=== PATIENT | male | born 1960 | race Caucasian/White ===

== ENCOUNTER → 2018-01-12 | Outpatient (CLI) | payer BC ==
[2018-01-12 09:41] LABS: MCHC 32.7 g/dL (31.0-37.0); MCV 85.6 fL (80.0-100.0); Mean Platelet Volume 7.4; Platelet Count 237 k/uL (150-450); RBC 5.73 m/uL (4.30-5.90); RDW 13.1 % (11.5-15.5); WBC 6.1 k/uL (3.8-10.6)
[2018-01-12 09:57] LABS: ALT 41 U/L (21-72); AST 29 U/L (17-59); Albumin 4.7 g/dL (3.5-5.0); Alkaline Phosphatase 65 U/L (38-126); Anion Gap 14 mmol/L; Blood Urea Nitrogen 21 mg/dL (9-20); Calcium 9.7 mg/dL (8.4-10.2); Carbon Dioxide 26 mmol/L (22-30); Chloride 105 mmol/L (98-107); Glucose 91 mg/dL (74-99); Potassium 4.9 mmol/L (3.5-5.1); Sodium 145 mmol/L (137-145); Total Protein 7.2 g/dL (6.3-8.2)
[2018-01-12 10:12] LABS: T4, Free (Free Thyroxine) 1.23 ng/dL (0.78-2.19)
[2018-01-12 18:39] LABS: Hemoglobin A1C 5.4 % (4.0-6.0)
== END | disposition home or self-care (01) ==
LOC: LABWHC1 09:06
PROVIDERS: ATTEND Internal Medicine Cardiovascular Disease
DX: Z09 Encounter for follow-up examination after completed treatment for conditions other than malignant neoplasm (principal); Z95.1 Presence of aortocoronary bypass graft
CPT/HCPCS: 36415; 80053; 83036; 83880; 84439; 84443; 85027

== ENCOUNTER → 2018-02-10 | Outpatient (CLI) | payer BC ==
--- NOTE | 2018-02-10 20:02 | CT ---
EXAMINATION TYPE: CT chest wo con DATE OF EXAM: 02/10/2018 COMPARISON: NONE HISTORY: Pneumonia unspecified. Cough x [address] DLP: 385 mGycm. Automated Exposure Control for Dose Reduction was Utilized. TECHNIQUE: CT scan of the thorax is performed without IV contrast. FINDINGS: There is a mild thoracic dextroscoliosis. There is no evidence of pleural effusion. Lungs are clear o f consolidation. There is no evidence of a pulmonary mass. There are sternal wires. There is apparent surgery at the aortic valve. There is left axillary pacemaker with the lead tip in the right ventric le. The ascending aorta measures 3.2 cm. There are small linear areas in the posterior lung michael. T his is consistent with subsegmental atelectasis. There is no pericardial effusion. There are paratracheal and anterior mediastinal lymph nodes that measure up to 2 x 1 cm. There are no hilar masses. IMPRESSION: Previous surgery. Minimal subsegmental atelectasis. Nonspecific mediastinal lymph nodes. No evidence of bronchopneumonia.
== END ==
LOC: RADCTMAIN 19:07
PROVIDERS: ATTEND Family Medicine
DX: J18.9 Pneumonia, unspecified organism (principal)
CPT/HCPCS: 71250

== ENCOUNTER → 2018-03-16 | Outpatient (CLI) | payer BC ==
[2018-03-16 09:21] LABS: Calcium 9.1 mg/dL (8.4-10.2); Potassium 4.5 mmol/L (3.5-5.1)
== END | disposition home or self-care (01) ==
LOC: LABWHC1 08:11
PROVIDERS: ATTEND Internal Medicine Cardiovascular Disease
DX: I50.9 Heart failure, unspecified (principal)
CPT/HCPCS: 36415; 80048; 83880

== ENCOUNTER → 2018-09-12 | Outpatient (CLI) | payer BC ==
--- NOTE | 2018-09-16 13:03 | MM ---
Reason for exam: clinical finding. Baseline mammogram. History: Family history of breast cancer in grandmother. Indicated problem(s): lump or thickening and pain in the right breast. Physical Findings: Nurse did not find any significant physical abnormalities on exam. MG Diagnostic Mammo w CAD GLORIA Bilateral CC and MLO view(s) were taken. Very minimal bilateral gynecomastia. Left pacemaker noted. These results were verbally communicated with the patient and result sheet given to the patient on 09/12/18. ASSESSMENT: Benign, BI-RAD 2 RECOMMENDATION: Clinical management.
--- NOTE | 2018-09-16 13:09 | USB ---
Reason for exam: clinical finding. History: Family history of breast cancer in Great grandmother. Indicated problem(s): lump or thickening and pain in the right breast. Physical Findings: Nurse Summary: Asymmetric thickening and tenderness with lump in the right breast . US Breast RT Right complete breast ultrasound includes all four quadrants, the retroareolar region and axilla. Finding demonstrates no cystic or solid lesion seen. Very minimal right gynecomastia on ultrasound. Mammogram is recommended to confirm. ASSESSMENT: Incomplete: need additional imaging evaluation, BI-RAD 0 RECOMMENDATION: Follow-up diagnostic mammogram of both breasts.
== END | disposition home or self-care (01) ==
LOC: RADUSWWP 14:04
PROVIDERS: ATTEND Family Medicine
DX: N63.10 Unspecified lump in the right breast, unspecified quadrant (principal); R22.2 Localized swelling, mass and lump, trunk
CPT/HCPCS: 77066

== ENCOUNTER → 2019-07-31 | Outpatient (CLI) | payer BC ==
[2019-07-31 09:11] LABS: HGB 15.5 gm/dL (13.0-17.5); MCH 30.3 pg (25.0-35.0); MCHC 34.5 g/dL (31.0-37.0); MCV 87.7 fL (80.0-100.0); Mean Platelet Volume 6.3; Platelet Count 234 k/uL (150-450); RBC 5.13 m/uL (4.30-5.90); RDW 12.5 % (11.5-15.5); WBC 8.4 k/uL (3.8-10.6)
[2019-07-31 18:36] LABS: African American GFR (CKD) 70.2 (60.0-200.0); Albumin 4.6 g/dL (3.80-4.90); Albumin/Globulin Ratio 2.42 (1.60-3.17); Anion Gap 6.3 mmol/L (4.00-12.00); BUN/Creat Ratio 14.62 Ratio (12.00-20.00); Calcium 9.4 mg/dL (8.7-10.3); Carbon Dioxide 27.7 mmol/L (21.6-31.8); Globulin 1.9 g/dL (1.6-3.3); Non-African American GFR(CKD) 60.6 (60.0-200.0); Potassium 4.5 mmol/L (3.5-5.5); Total Bilirubin 0.8 mg/dL (0.3-1.2); Total Protein 6.5 g/dL (6.2-8.2)
[2019-08-04 19:25] LABS: Large VLDL Particle Number,NMR 10.2 nmol/L (<=2.7)
== END | disposition home or self-care (01) ==
LOC: LABWHC1 08:27
PROVIDERS: ATTEND Internal Medicine Cardiovascular Disease
DX: I25.10 Atherosclerotic heart disease of native coronary artery without angina pectoris (principal)
CPT/HCPCS: 36415; 80053; 83704; 85027

== ENCOUNTER → 2019-08-16 | Outpatient (CLI) | payer BC ==
[2019-08-16 16:33] LABS: Chol/HDL Ratio 3.54; LDL Cholesterol,Calculated 78.4 mg/dL (0.0-131.0); VLDL Calculation 25.6 mg/dL (5.00-40.00)
[2019-08-16 19:12] LABS: Hemoglobin A1C 5.4 % (4.0-6.0)
== END | disposition home or self-care (01) ==
LOC: LABWHC1 09:53
PROVIDERS: ATTEND Family Medicine
DX: Z00.00 Encounter for general adult medical examination without abnormal findings (principal); I50.9 Heart failure, unspecified; Z11.59 Encounter for screening for other viral diseases; Z12.5 Encounter for screening for malignant neoplasm of prostate
CPT/HCPCS: 36415; 80061; 83036; 83880; 84153; 84443; 86803

== ENCOUNTER → 2021-05-22 | Outpatient (CLI) | payer BC ==
[2021-05-22 22:45] LABS: Chol/HDL Ratio 3.63; LDL Cholesterol,Calculated 87.6 mg/dL (0.0-131.0); VLDL Calculation 20.4 mg/dL (5.00-40.00)
== END | disposition home or self-care (01) ==
LOC: LABWHC1 09:43
PROVIDERS: ATTEND Internal Medicine
DX: E78.2 Mixed hyperlipidemia (principal)
CPT/HCPCS: 36415; 80061; 84450; 84460

== ENCOUNTER → 2021-09-08 | Outpatient (CLI) | payer BC ==
[2021-09-08 14:17] LABS: Basophils # (A) 0.05 X 10*3/uL (0.00-0.10); Eosinophils # (A) 0.13 X 10*3/uL (0.04-0.35); Eosinophils % (A) 2.5 %; HCT 46.3 % (39.6-50.0); HGB 15.3 g/dL (13.0-17.0); Lymphocytes # (A) 1.37 X 10*3/uL (0.90-5.00); Lymphocytes % (A) 26.9 %; MCV 87.9 fL (80.0-97.0); Mean Platelet Volume 9.8 fL (9.5-12.2); Monocytes # (A) 0.41 X 10*3/uL (0.20-1.00); Neutrophils # (A) 3.13 X 10*3/uL (1.80-7.70); Neutrophils % (A) 61.4 %; Platelet Count 255 X 10*3/uL (140-440); RBC 5.27 X 10*6/uL (4.40-5.60); RDW 12.5 % (11.5-14.5)
[2021-09-08 15:39] LABS: ALT 22 U/L (10-49); AST 20 U/L (14-35); African American GFR (CKD) 78.6 (60.0-200.0); Albumin 4.9 g/dL (3.8-4.9); Alkaline Phosphatase 67 U/L (41-126); BUN/Creat Ratio 15.81 Ratio (12.00-20.00); Blood Urea Nitrogen 18.5 mg/dL (9.0-27.0); Calcium 9.6 mg/dL (8.7-10.3); Chloride 101 mmol/L (96-109); Chol/HDL Ratio 3.53 Ratio; Creatine Kinase 49 U/L (35-257); Globulin 2.4 g/dL (1.6-3.3); Glucose 95 mg/dL (70-110); LDL Cholesterol,Calculated 89.6 mg/dL (0.0-131.0); Non-African American GFR(CKD) 67.8 (60.0-200.0); Potassium 4.4 mmol/L (3.5-5.5); Sodium 140 mmol/L (135-145); Total Protein 7.3 g/dL (6.2-8.2)
== END | disposition home or self-care (01) ==
LOC: LABWHC1 09:08
PROVIDERS: ATTEND Family Medicine
DX: Z00.00 Encounter for general adult medical examination without abnormal findings (principal); I50.9 Heart failure, unspecified; Z12.5 Encounter for screening for malignant neoplasm of prostate; E78.5 Hyperlipidemia, unspecified
CPT/HCPCS: 36415; 80053; 80061; 82550; 83036; 83880; 84153; 84443; 85025

== ENCOUNTER → 2023-05-29 | Outpatient (CLI) | payer BC ==
[2023-05-30 07:22] LABS: ALT 16 U/L (10-49); AST 17 U/L (14-35); LDL Cholesterol,Calculated 85.2 mg/dL (0.0-131.0); VLDL Calculation 19.36 mg/dL (5.00-40.00)
== END | disposition home or self-care (01) ==
LOC: LABWHC1 09:00
PROVIDERS: ATTEND Internal Medicine
DX: E78.2 Mixed hyperlipidemia (principal)
CPT/HCPCS: 36415; 80061; 84450; 84460

== ENCOUNTER → 2024-07-22 | Outpatient (CLI) | payer BC ==
[2024-07-22 22:54] LABS: Basophils # (A) 0.03 X 10*3/uL (0.00-0.10); Basophils % (A) 0.6 %; Eosinophils # (A) 0.08 X 10*3/uL (0.04-0.35); Eosinophils % (A) 1.7 %; HCT 50.8 % (39.6-50.0); HGB 17.2 g/dL (13.0-17.0); Lymphocytes # (A) 1.42 X 10*3/uL (0.90-5.00); Lymphocytes % (A) 30.1 %; MCH 29.6 pg (27.0-32.0); MCHC 33.9 g/dL (32.0-37.0); MCV 87.3 FL (80.0-97.0); Monocytes # (A) 0.46 X 10*3/uL (0.20-1.00); Monocytes % (A) 9.8 %; NRBC Per 100 WBC 0 X 10*3/uL (0.00-0.01); Neutrophils % (A) 57.4 %; Platelet Count 234 X 10*3/uL (140-440); RBC 5.82 X 10*6/uL (4.40-5.60); RDW 12.7 % (11.5-14.5); WBC 4.71 X 10*3/uL (4.50-10.00)
[2024-07-22 23:16] LABS: NT-Pro-B-Type Natriuretic Pept 1379 pg/mL (0-125)
[2024-07-22 23:25] LABS: ALT 19 U/L (10-49); AST 24 U/L (14-35); Albumin 4.6 g/dL (3.8-4.9); Albumin/Globulin Ratio 1.84 Ratio (1.60-3.17); Alkaline Phosphatase 63 U/L (41-126); BUN/Creat Ratio 12.85 Ratio (12.00-20.00); Blood Urea Nitrogen 16.7 mg/dL (9.0-27.0); Calcium 9.4 mg/dL (8.7-10.3); Carbon Dioxide 22.7 mmol/L (21.6-31.8); Chloride 103 mmol/L (96-109); Chol/HDL Ratio 4.09 Ratio; Globulin 2.5 g/dL (1.6-3.3); Glucose 85 mg/dL (70-110); LDL Cholesterol,Calculated 107.8 mg/dL (0.0-131.0); Potassium 5.3 mmol/L (3.5-5.5); Sodium 140 mmol/L (135-145); Total Protein 7.1 g/dL (6.2-8.2); VLDL Calculation 18.44 mg/dL (5.00-40.00)
== END | disposition home or self-care (01) ==
LOC: LABWHC1 08:42
PROVIDERS: ATTEND Family Medicine
DX: Z00.00 Encounter for general adult medical examination without abnormal findings (principal); Z12.5 Encounter for screening for malignant neoplasm of prostate; I50.9 Heart failure, unspecified
CPT/HCPCS: 36415; 80053; 80061; 83036; 83880; 84153; 84443; 85025

== ENCOUNTER 2024-08-12 09:41 | Observation (INO) | payer BC ==
[2024-08-12 10:28] LABS: Basophils # (A) 0.1 k/uL (0-0.2); Basophils % (A) 1 %; Eosinophils # (A) 0.1 k/uL (0-0.7); Eosinophils % (A) 3 %; HCT 46.2 % (39.0-53.0); HGB 15.3 gm/dL (13.0-17.5); Lymphocytes # (A) 1.5 k/uL (1.0-4.8); Lymphocytes % (A) 29 %; MCH 29.3 pg (25.0-35.0); MCHC 33.1 g/dL (31.0-37.0); MCV 88.5 fL (80.0-100.0); Mean Platelet Volume 6.9; Monocytes # (A) 0.4 k/uL (0-1.0); Monocytes % (A) 8 %; Neutrophils % (A) 58 %; Platelet Count 223 k/uL (150-450); RBC 5.22 m/uL (4.30-5.90); RDW 12.6 % (11.5-15.5); WBC 5.2 k/uL (3.8-10.6)
--- NOTE | 2024-08-12 10:40 | ED ---
Chest Pain HPI - General Chief Complaint: Chest Pain Stated Complaint: Congestion Time Seen by Provider: 08/12/24 09:45 Source: patient Mode of arrival: ambulatory Limitations: no limitations - History of Present Illness Initial Comments: 64-year-old male with past medical history of ischemic cardiomyopathy, hypertension, hyperlipidemia, aortic valve replacement with defibrillator who presents to the emergency department with defibrillator discharge. Patient states that he was demoing a bathroom on Wednesday when he felt a shock. He thought it was due to electric discharge so he let go of the pipe that he was holding. He stood up and realized that it was his defibrillator going off. He received a call from the device company but never received a call from cardiology. He received a second call from the device company on Wednesday. They reported that his heart rate had been rapid but did not fire at that time. He went into his primary care office today for follow-up and they recommended that he come into the hospital for evaluation. Patient denies any current symptoms. No history of A-fib. He has had an increase in his Lasix. He is taking 40 mg which is up from 20 mg due to elevated BNP. He denies feeling short of breath. He does admit to having an upper respiratory infection with cough and congestion. No fevers. No other alleviating, precipitating or modifying factors - Related Data Home Medications Medication Instructions Recorded Confirmed Aspirin 325 mg PO DAILY@62901/01/16 08/12/24 Simvastatin 40 mg PO HS@182901/01/16 08/12/24 Empagliflozin [Jardiance] 10 mg PO DAILY@62908/12/24 08/12/24 Furosemide [Lasix] 20 mg PO DAILY@62908/12/24 08/12/24 Omeprazole Magnesium [PriLOSEC OTC] 20 mg PO Q2D@62908/12/24 08/12/24 Sacubitril/Valsartan [Entresto 49 1 tab PO BID@08/12/24 08/12/24 mg-51 mg Tablet] Spironolactone [Aldactone] 12.5 mg PO DAILY@62908/12/24 08/12/24 carvediloL [Coreg] 12.5 mg PO BID@08/12/24 08/12/24 tadalafiL [Cialis] 5 mg PO DAILY@0630 08/12/24 08/12/24 Allergies Allergy/AdvReac Type Severity Reaction Status Date / Time No Known Allergies Allergy Verified 08/12/24 12:00 Review of Systems ROS Statement: Those systems with pertinent positive or pertinent negative responses have been documented in the HPI. ROS Other: All systems not noted in ROS Statement are negative. Past Medical History Past Medical History: Heart Failure, Hyperlipidemia, Hypertension History of Any Multi-Drug Resistant Organisms: None Reported Past Surgical History: Cardiac Valve Replacement, Coronary Bypass/CABG Additional Past Surgical History / Comment(s): aortic valve replacement. defibrillator. quad bypass Past Psychological History: No Psychological Hx Reported Smoking Status: Never smoker Past Alcohol Use History: Occasional Past Drug Use History: None Reported General Exam Limitations: no limitations General appearance: alert, in no apparent distress Head exam: Present: atraumatic, normocephalic, normal inspection Eye exam: Present: normal appearance, PERRL, EOMI. Absent: scleral icterus, conjunctival injection, periorbital swelling ENT exam: Present: normal exam, mucous membranes moist Neck exam: Present: normal inspection. Absent: tenderness, meningismus, lymphadenopathy Respiratory exam: Present: normal lung sounds bilaterally. Absent: respiratory distress, wheezes, rales, rhonchi, stridor Cardiovascular Exam: Present: regular rate, normal rhythm, normal heart sounds. Absent: systolic murmur, diastolic murmur, rubs, gallop, clicks GI/Abdominal exam: Present: soft, normal bowel sounds. Absent: distended, tenderness, guarding, rebound, rigid Extremities exam: Present: normal inspection, full ROM, normal capillary refill. Absent: tenderness, pedal edema, joint swelling, calf tenderness Back exam: Present: normal inspection Neurological exam: Present: alert, oriented X3, CN II-XII intact Psychiatric exam: Present: normal affect, normal mood Skin exam: Present: warm, dry, intact, normal color. Absent: rash Course Vital Signs 08/12/24 09:44 Temperature 98 F Pulse Rate 71 Respiratory 18 Rate Blood Pressure 116/74 O2 Sat by Pulse 98 Oximetry Chest Pain MDM - MDM Was pt. sent in by a medical professional or institution (, PA, FURNACE REPAIRER, urgent care, hospital, or long term...) When possible be specific @ -Patient sent in from his primary care office Did you speak to anyone other than the patient for history (EMS, parent, family, police, friend...)? What history was obtained from this source @ -No Did you review nursing and triage notes (agree or disagree)? Why? @ -I reviewed and agree with nursing and triage notes Were old charts reviewed (outside hosp., previous admission, EMS record, old EKG, old radiological studies, urgent care reports/EKG's, long term records)? Report findings @ -No old charts were reviewed Differential Diagnosis (chest pain, altered mental status, abdominal pain women, abdominal pain men, vaginal bleeding, weakness, fever, dyspnea, syncope, headache, dizziness, GI bleed, back pain, seizure, CVA, palpatations, mental health, musculoskeletal)? @ -Differential Chest Pain: Stable Angina, Unstable Angina, STEMI, NSTEMI Aortic Dissection, Pneumothorax, Musculoskeletal, Esophageal Spasm GERD, Cholecystitis, Pancreatitis, Zoster, this is not meant to be an all-inclusive list. EKG interpreted by me (3pts min.). @ -Yes and demonstrates sinus rhythm with a rate of 70. Parable 207. QRS 130. QTc of 447. Right bundle branch block. No acute ST segment elevations or depressions X-rays interpreted by me (1pt min.). @ -No acute cardiopulmonary process CT interpreted by me (1pt min.). @ -None done U/S interpreted by me (1pt. min.). @ -None done What testing was considered but not performed or refused? (CT, X-rays, U/S, labs)? Why? @ -None What meds were considered but not given or refused? Why? @ -None Did you discuss the management of the patient with other professionals (professionals i.e. , PA, FURNACE REPAIRER, lab, RT, psych nurse, social sciences instructor, ladle liner, teacher, juvenile justice officer, case making machine operator)? Give summary @ -I spoke with Dr. Hardwick for admission Was smoking cessation discussed for >3mins.? @ -No Was critical care preformed (if so, how long)? @ -No Were there social determinants of health that impacted care today? How? (Homelessness, low income, unemployed, alcoholism, drug addiction, transportation, low edu. Level, literacy, decrease access to med. care, care home, rehab)? @ -No Was there de-escalation of care discussed even if they declined (Discuss DNR or withdrawal of care, Hospice)? DNR status @ -No What co-morbidities impacted this encounter? (DM, HTN, Smoking, COPD, CAD, Cancer, CVA, ARF, Chemo, Hep., AIDS, mental health diagnosis, sleep apnea, morbid obesity)? @ -Ischemic cardiomyopathy Was patient admitted / discharged? Hospital course, mention meds given and route, prescriptions, significant lab abnormalities, going to OR and other pertinent info. @ -Upon arrival patient seen and evaluated in bed 11. Thorough history and physical exam was performed. IV access was established. Laboratory studies were conducted. Chest x-ray was performed. We did interrogate the patient's [place] device. Report states that the patient is going into VT with 1 defibrillator discharge. Rhythm strip is evaluated by me and appears to be more of A-fib with a bundle branch block. I did speak with Dr. Hardwick who will admit the patient for cardiology consultation. Patient currently awaiting a bed on the floor in stable condition Undiagnosed new problem with uncertain prognosis? @ -No Drug Therapy requiring intensive monitoring for toxicity (Heparin, Nitro, Insulin, Cardizem)? @ -No Were any procedures done? @ -No Diagnosis/symptom? @ -Acute defibrillator discharge, SVT Acute, or Chronic, or Acute on Chronic? @ -Acute Uncomplicated (without systemic symptoms) or Complicated (systemic symptoms)? @ -Complicated Side effects of treatment? @ -No Exacerbation, Progression, or Severe Exacerbation? @ -No Poses a threat to life or bodily function? How? (Chest pain, USA, VT, pneumonia, PE, COPD, DKA, ARF, appy, cholecystitis, CVA, Diverticulitis, Homicidal, Suicidal, threat to staff... and all critical care pts) @ -Yes as patient is going to a rapid heart rhythm Disposition Clinical Impression: Defibrillator discharge Disposition: ADMITTED IP TO THIS HOSP Condition: Stable Is patient prescribed a controlled substance at d/c from ED?: No Referrals: Aakash Dorado MD [Primary Care Provider] - 1-2 days Time of Disposition: 12:07 Decision to Admit Reason: Admit from EC Decision Date: 08/12/24 Decision Time: 12:07
[2024-08-12 10:41] LABS: Partial Thromboplastin Time 24.2 sec (22.0-30.0); Prothrombin Time 10.9 sec (10.0-12.5)
[2024-08-12 10:43] LABS: ALT 16 U/L (4-49); AST 23 U/L (17-59); African American GFR (CKD) 88 (>60 ml/min/1.73 sqM); Albumin 4.5 g/dL (3.5-5.0); Alkaline Phosphatase 49 U/L (38-126); Anion Gap 8 mmol/L; Blood Urea Nitrogen 22 mg/dL (9-20); Calcium 9.1 mg/dL (8.4-10.2); Carbon Dioxide 22 mmol/L (22-30); Chloride 108 mmol/L (98-107); Glucose 96 mg/dL (74-99); Magnesium 2.4 mg/dL (1.6-2.3); Non-African American GFR(CKD) 76 (>60 ml/min/1.73 sqM); Potassium 4.5 mmol/L (3.5-5.1); Sodium 138 mmol/L (137-145); Total Bilirubin 1.1 mg/dL (0.2-1.3)
[2024-08-12 10:51] LABS: NT-Pro-B-Type Natriuretic Pept 2210 pg/mL
--- NOTE | 2024-08-12 11:25 | XR ---
EXAMINATION TYPE: XR chest 2V DATE OF EXAM: 08/12/2024 11:16 AM COMPARISON: 02/10/2018. CLINICAL INDICATION: Male, 64 years old with history of Chest Pain; TECHNIQUE: XR chest 2V Frontal and lateral views of the chest. FINDINGS: Lungs/Pleura: There is no evidence of pleural effusion, focal consolidation, or pneumothorax. Pulmonary vascularity: Unremarkable. Heart/mediastinum: Cardiomediastinal silhouette is unremarkable. Single-lead cardiac conduction devic e overlying the left hemithorax with lead projecting over the right ventricle. Musculoskeletal: No acute osseous pathology. Midline sternotomy wires are noted. Other findings: None IMPRESSION: No acute cardiopulmonary disease/process. [facility], , 08/12/2024 11:23 AM
[2024-08-12] MEDS ORDERED: NALOXONE 0.4 MG/ML 1 ML VIAL IV PRN (12:17)
--- NOTE | 2024-08-12 13:19 | P.HPIM ---
History of Present Illness H&P Date: 08/12/24 Chief Complaint: defibrillator discharge Patient is a 64-year-old male with a past medical history of ischemic cardiomyopathy status post defibrillator, hypertension, hyperlipidemia, aortic valve replacement who was sent by his PCP to be evaluated for his defibrillator shock. Patient states that 1 week ago when he was in the bathroom demolishing it his defibrillator shocked. He states that the device company called 2 days later to notify him about it. He then states that his heart was rapid again about 2 days ago and the device company called in yesterday to notify him about it. He states that he went to go see his PCP today mainly because he was having a cough since . He denies any history of smoking. He denies orthopnea or PND. He denies any swelling in his lower extremities. He denies any fever or chills. In the ED chest x-ray was negative for acute process. Per ED provider his defibrillator was interrogated and it did show an episode of sustained ventricular tachycardia and 2 episodes of nonsustained ventricular tachycardia. Patient is known to our cardiology service so he was referred for admission for further evaluation. ROS: 10 ROS reviewed and are negative except as noted in HPI Physical exam General: [Alert and oriented, well nourished, no acute distress]. Eye: [PERRL, EOMI, normal conjunctiva]. HENT: [Normocephalic, clear tympanic membranes, normal hearing, moist oral mucosa, no scleral icterus, no sinus tenderness]. Neck: [Supple, non-tender, no carotid bruits, no JVD, no lymphadenopathy]. Lungs: [Clear to auscultation and percussion, non-labored respiration]. Heart: [Normal rate, regular rhythm, no murmur, gallop or edema]. Abdomen: [Soft, non-tender, non-distended, normal bowel sounds, no masses]. Musculoskeletal: [Normal range of motion and strength, no tenderness or swelling]. Skin: [Skin is warm, dry and pink, no rashes or lesions]. Neurologic: [Awake, alert, and oriented X3, CN II-XII intact]. Psychiatric: [Cooperative, appropriate mood and affect]. Assessment and plan Ventricular tachycardia status post shock from his defibrillator I discussed with the ED provider and accepted the admission so that patient can be evaluated by cardiology for recurrent ventricular tachycardia episodes First troponin is within normal limits Will trend troponin 2 more times Will consult cardiology Telemonitoring Continue with beta-william Cough I independently interpreted the chest x-ray that shows no acute process Patient currently has no wheezing on exam Influenza negative, RSV negative, COVID-19 negative I suspect patient may have underlying asthma We will start albuterol nebulizer treatment standing 4 times a day and see if there is any improvement. On discharge will refer him to pulmonology for further workup Ischemic cardiomyopathy Compensated Patient says at 1 point his EF was less than 30%. He states that on follow-up appointments he was told that his ejection fraction had improved Will defer to cardiology if patient needs another echocardiogram Continue with Entresto 1 tab p.o. twice daily, Coreg 12.5 mg p.o. 3 times daily, simvastatin 40 mg p.o. at bedtime, Aldactone 12.5 mg p.o. daily, Lasix 20 mg p.o. daily, aspirin 325 mg p.o. daily, Jardiance 10 mg p.o. daily Aortic valve replacement Patient states that he has a donor valve Stable Hypertension Blood pressure control Resume home BP meds Hyperlipidemia Continue statin DVT prophylaxis: Subcu Lovenox Past Medical History Past Medical History: Heart Failure, Hyperlipidemia, Hypertension History of Any Multi-Drug Resistant Organisms: None Reported Past Surgical History: Cardiac Valve Replacement, Coronary Bypass/CABG Additional Past Surgical History / Comment(s): aortic valve replacement. defibrillator. quad bypass Past Psychological History: No Psychological Hx Reported Smoking Status: Never smoker Past Alcohol Use History: Occasional Past Drug Use History: None Reported Medications and Allergies Home Medications Medication Instructions Recorded Confirmed Type Aspirin 325 mg PO DAILY@0630 01/01/16 08/12/24 History Simvastatin 40 mg PO HS@1830 01/01/16 08/12/24 History Empagliflozin [Jardiance] 10 mg PO DAILY@62908/12/24 08/12/24 History Furosemide [Lasix] 20 mg PO DAILY@62908/12/24 08/12/24 History Omeprazole Magnesium [PriLOSEC OTC] 20 mg PO Q2D@30 08/12/24 08/12/24 History Sacubitril/Valsartan [Entresto 49 1 tab PO BID@629,182908/12/24 08/12/24 History mg-51 mg Tablet] Spironolactone [Aldactone] 12.5 mg PO DAILY@0630 08/12/24 08/12/24 History carvediloL [Coreg] 12.5 mg PO BID@0630,1830 08/12/24 08/12/24 History tadalafiL [Cialis] 5 mg PO DAILY@0630 08/12/24 08/12/24 History Allergies Allergy/AdvReac Type Severity Reaction Status Date / Time No Known Allergies Allergy Verified 08/12/24 12:00 Physical Exam Osteopathic Statement: *. No significant issues noted on an osteopathic structural exam other than those noted in the History and Physical/Consult. Vitals: Vital Signs Temp Pulse Resp BP Pulse Ox 08/12/24 09:44 98 F 71 18 116/74 98 Intake and Output 08/11/24 08/12/24 08/12/24 22:59 06:59 14:59 Other: Weight 82.1 kg Results CBC & Chem 7: 08/12/24 10:21 08/12/24 10:21 Labs: Abnormal Lab Results - Last 24 Hours (Table) 08/12/24 Range/Units 10:21 Chloride 108 H (98-107) mmol/L BUN 22 H (9-20) mg/dL Magnesium 2.4 H (1.6-2.3) mg/dL
[2024-08-12] MEDS: ATORVASTATIN 20 MG TAB PO SCH (18:37)
[2024-08-12] MEDS: SACUBITRIL/VALSARTAN 49 MG-51 MG TABLET PO SCH (18:37)
[2024-08-12] MEDS: carvediloL 12.5 MG TAB PO SCH (18:37)
[2024-08-12] MEDS: ALBUTEROL NEBULIZED 2.5 MG/3 ML INHALATION SCH (18:47)
[2024-08-13] MEDS: FUROSEMIDE 20 MG TAB PO SCH (06:26)
[2024-08-13] MEDS: SPIRONOLACTONE 25 MG TAB PO SCH (06:26)
[2024-08-13] MEDS: DAPAGLIFLOZIN PROPANEDIOL 5 MG TABLET PO SCH (06:26)
[2024-08-13] MEDS: ASPIRIN 325 MG TAB PO SCH (06:27)
[2024-08-13] MEDS: NON FORMULARY DRUG (Tadalafil [Cialis] 5 MG Tablet) PO SCH (07:55)
--- NOTE | 2024-08-13 08:48 | P.CRDCN ---
History of Present Illness Consult date: 08/13/24 Reason for Consult (text): Pacemaker/defibrillator discharge History of present illness: This is Favian Blanco NP, I'm dictating on behalf of Dr. Newton's H&P and A&P The patient was interviewed and examined. HPI: Patient is a pleasant 64-year-old male with a past medical history of ischemic cardiomyopathy, hypertension, hyperlipidemia, aortic valve replacement, defibrillator implantation, and quadruple bypass who presents to the hospital with reports of his defibrillator discharging. Patient reports that the initial discharge was this past Wednesday while he was working. The device company did call him, but he states cardiology never called him. Patient reports he had another call from the device company this past Wednesday, stating that his heart rate was rapid but there was no defibrillator discharge, and after contacting his primary care provider, he was recommended to come to the hospital for evaluation. In the emergency department they interrogated his pacemaker which demonstrated episodes of high heart rate with 1 discharge. Patient's vital signs were stable, labs were relatively normal. He was admitted for further evaluation and we were consulted for the pacemaker discharge. After evaluation of the pacemaker interrogation it was discovered the patient is actually having atrial fibrillation with a very high heart rate, confusing the pacemaker and causing it to discharge. This morning he is denying chest pain, shortness of breath, heart palpitations, dizziness, nausea. Patient reports no significant symptoms prior to the shock. He states the only changes he has made is doubling up on his Lasix dose per his primary care provider for an elevated BNP. ROS: [No fever, chills, or rigors] [no cough, phlegm, or expectoration] [no nausea, vomiting, or diarrhea] [no hematuria, dysuria] [no musculoskelatal complaints] [no strokes or seizures] [no skin lesions] EXAMINATION: GENERAL: Well-appearing, well-nourished and in no acute distress. NECK: Supple without JVD or thyromegaly. LUNGS: Breath sounds clear to auscultation bilaterally. Respiration equal and unlabored. No wheezes, rales or rhonchi. HEART: Regular rate and rhythm without murmurs, rubs or gallops. S1 and S2 heard. EXTREMITIES: Normal range of motion, no edema. No clubbing or cyanosis. Peripheral pulses intact and strong. REVIEW OF LABS, ECG & MEDICAL DATA: LABS: White count 5.2, hemoglobin 15.3, platelets 223, sodium 138, potassium 4.5, BUN 22, magnesium 2.4, troponin-0.015, then less than 0.012 x 2, BNP 2210 EKG: Sinus mechanism with occasional PVCs IMAGING: Chest x-ray dated 08/12/2024 demonstrates no acute cardiopulmonary disease/process. VITALS: Temp 97.7, pulse 58, respirations 16, blood pressure 111/74, O2 saturat ion 97% on room air IMPRESSION: 1. Atrial fibrillation with rapid ventricular response 2. Congestive heart failure 3. History of valve replacement 4. History of CABG 5. Defibrillator discharge, inappropriate PLAN: Check TSH. Increase Coreg to 18.75 mg twice daily. Increase spironolactone to 25 mg daily. Increase Lasix to 40 mg daily. Start Eliquis 5 mg twice daily. Continue to monitor on telemetry. Patient will need an atrial fibrillation ablation in the near future. Further recommendations based on patient's clinical course. Thank you for the consult and allowing us to participate in the care of this patient. Dr. Newton evaluate the patient ICD interrogation reveals A-fib with RVR in the VT zone. The VT zone is programmed between 181-221 beats a minute While the ICD interpreted this as supraventricular in nature appropriately, later along the course it reclassified it as VT in view of suboptimal, subtle mismatch and hence therapies were delivered Inappropriate ICD therapies for A-fib with RVR Anticoagulation for atrial fibrillation Maximize beta-blockers I would recommend an A-fib ablation after at least 4 weeks of anticoagulation If possible increase carvedilol to 25 mg twice daily if patient can tolerate it Avoid amiodarone unless patient has recurrent ICD therapies after today Past Medical History Past Medical History: Heart Failure, Hyperlipidemia, Hypertension History of Any Multi-Drug Resistant Organisms: None Reported Past Surgical History: Cardiac Valve Replacement, Coronary Bypass/CABG Additional Past Surgical History / Comment(s): aortic valve replacement. defibrillator. quad bypass Past Psychological History: No Psychological Hx Reported Smoking Status: Never smoker Past Alcohol Use History: Occasional Past Drug Use History: None Reported Medications and Allergies Home Medications Medication Instructions Recorded Confirmed Type Aspirin 325 mg PO DAILY@0630 01/01/16 08/12/24 History Simvastatin 40 mg PO HS@1830 01/01/16 08/12/24 History Empagliflozin [Jardiance] 10 mg PO DAILY@30 08/12/24 08/12/24 History Furosemide [Lasix] 20 mg PO DAILY@62908/12/24 08/12/24 History Omeprazole Magnesium [PriLOSEC OTC] 20 mg PO Q2D@62908/12/24 08/12/24 History Sacubitril/Valsartan [Entresto 49 1 tab PO BID@629,182908/12/24 08/12/24 History mg-51 mg Tablet] Spironolactone [Aldactone] 12.5 mg PO DAILY@62908/12/24 08/12/24 History carvediloL [Coreg] 12.5 mg PO BID@629,182908/12/24 08/12/24 History tadalafiL [Cialis] 5 mg PO DAILY@62908/12/24 08/12/24 History Allergies Allergy/AdvReac Type Severity Reaction Status Date / Time No Known Allergies Allergy Verified 08/12/24 12:00 Physical Exam Vitals: Vital Signs Temp Pulse Pulse Pulse Resp BP BP 08/13/24 08:16 68 08/13/24 07:50 97.7 F 58 L 16 111/74 08/13/24 06:20 57 L 08/13/24 05:10 58 L 08/13/24 02:00 97.5 F L 40 L 16 08/12/24 19:58 97.4 F L 66 17 08/12/24 19:01 66 08/12/24 18:48 64 08/12/24 18:35 97.5 F L 68 18 08/12/24 16:00 80 17 111/72 08/12/24 13:23 59 L 17 110/75 08/12/24 09:44 98 F 71 18 116/74 BP Pulse Ox 08/13/24 08:16 08/13/24 07:50 97 08/13/24 06:20 110/70 08/13/24 05:10 08/13/24 02:00 104/70 100 08/12/24 19:58 112/77 94 L 08/12/24 19:01 08/12/24 18:48 08/12/24 18:35 99/62 94 L 08/12/24 16:00 98 08/12/24 13:23 97 08/12/24 09:44 98 Intake and Output 08/12/24 08/13/24 08/13/24 22:59 06:59 14:59 Other: # Voids 2 2 Results 08/12/24 10:21 08/12/24 10:21 Cardiac Enzymes 08/12/24 08/12/24 08/12/24 Range/Units 10:21 10:21 14:27 AST 23 (17-59) U/L Troponin I 0.015 <0.012 (0.000-0.034) ng/mL 08/12/24 Range/Units 17:27 AST (17-59) U/L Troponin I <0.012 (0.000-0.034) ng/mL Coagulation 08/12/24 Range/Units 10:21 PT 10.9 (10.0-12.5) sec APTT 24.2 (22.0-30.0) sec CBC 08/12/24 Range/Units 10:21 WBC 5.2 (3.8-10.6) k/uL RBC 5.22 (4.30-5.90) m/uL Hgb 15.3 (13.0-17.5) gm/dL Hct 46.2 (39.0-53.0) % Plt Count 223 (150-450) k/uL Comprehensive Metabolic Panel 08/12/24 Range/Units 10:21 Sodium 138 (137-145) mmol/L Potassium 4.5 (3.5-5.1) mmol/L Chloride 108 H (98-107) mmol/L Carbon Dioxide 22 (22-30) mmol/L BUN 22 H (9-20) mg/dL Creatinine 1.05 (0.66-1.25) mg/dL Glucose 96 (74-99) mg/dL Calcium 9.1 (8.4-10.2) mg/dL AST 23 (17-59) U/L ALT 16 (4-49) U/L Alkaline Phosphatase 49 (38-126) U/L Total Protein 7.0 (6.3-8.2) g/dL Albumin 4.5 (3.5-5.0) g/dL Current Medications Generic Name Dose Route Start Last Admin Trade Name Freq PRN Reason Stop Dose Admin Albuterol Sulfate 2.5 mg 08/12/24 20:00 08/12/24 18:47 Albuterol Nebulized 2.5 Mg/3 Ml INHALATION 2.5 mg RT-TID [facility] Administration Apixaban 5 mg 08/13/24 09:00 Apixaban 5 Mg Tab PO BID [facility] Protocol Aspirin 325 mg 08/13/24 06:30 08/13/24 06:27 Aspirin 325 Mg Tab PO 325 mg DAILY@0630 [facility] Administration Atorvastatin Calcium 20 mg 08/12/24 18:30 08/12/24 18:37 Atorvastatin 20 Mg Tab PO 20 mg HS@1830 [facility] Administration Carvedilol 18.75 mg 08/13/24 08:45 Carvedilol 12.5 Mg Tab PO BID@0630,1830 [facility] Dapagliflozin 5 mg 08/13/24 06:30 08/13/24 06:26 Dapagliflozin Propanediol 5 Mg Tablet PO 5 mg DAILY@0630 [facility] Administration Furosemide 40 mg 08/13/24 08:45 Furosemide 20 Mg Tab PO DAILY@0630 [facility] Naloxone HCl 0.2 mg 08/12/24 12:17 Naloxone 0.4 Mg/Ml 1 Ml Vial IV Q2M PRN Opioid Reversal Non-Formulary Medication 5 mg 08/13/24 06:30 08/13/24 07:55 Tadalafil [Cialis] PO Not Given DAILY@0630 [facility] Pantoprazole Sodium 40 mg 08/14/24 06:30 Pantoprazole 40 Mg Tablet PO Q2D@0630 [facility] Sacubitril/Valsartan 1 each 08/12/24 18:30 08/13/24 06:26 Sacubitril/Valsartan 49 Mg-51 Mg Tablet PO 1 each BID@0630,1830 [facility] Administration Spironolactone 25 mg 08/13/24 08:45 Spironolactone 25 Mg Tab PO DAILY@0630 [facility] Intake and Output 08/12/24 08/13/24 08/13/24 22:59 06:59 14:59 Other: # Voids 2 2 08/12/24 10:21 08/12/24 10:21
[2024-08-13] MEDS: APIXABAN 5 MG TAB PO SCH (09:24)
[2024-08-13] MEDS: SPIRONOLACTONE 25 MG TAB PO ONE (09:25)
[2024-08-13] MEDS: FUROSEMIDE 20 MG TAB PO ONE (09:29)
[2024-08-13] MEDS: carvediloL 12.5 MG TAB PO SCH (09:30)
--- NOTE | 2024-08-13 10:28 | P.PN ---
Subjective Progress Note Date: 08/13/24 Hospital course Patient is a 64-year-old male with a past medical history of ischemic cardiomyopathy status post defibrillator, hypertension, hyperlipidemia, aortic valve replacement who was sent by his PCP to be evaluated for his defibrillator shock. Patient states that 1 week ago when he was in the bathroom demolishing it his defibrillator shocked. He states that the device company called 2 days later to notify him about it. He then states that his heart was rapid again about 2 days ago and the device company called in yesterday to notify him about it. He states that he went to go see his PCP today mainly because he was having a cough since . He denies any history of smoking. He denies orthopnea or PND. He denies any swelling in his lower extremities. He denies any fever or chills. In the ED chest x-ray was negative for acute process. Per ED provider his defibrillator was interrogated and it did show an episode of sustained ventricular tachycardia and 2 episodes of nonsustained ventricular tachycardia. Patient is known to our cardiology service so he was referred for admission for further evaluation. Patient was evaluated by cardiology. Cardiology reviewed his pacemaker interrogation and said that patient did not have ventricular tachycardia episodes but instead had atrial fibrillation with RVR episodes. Cardiology increased his Coreg and started the patient on Eliquis. [employer] contacted to make adjustments to his pacemaker. Patient seen this morning. He states that the nebulizer treatment has been helping a little bit with his cough. He otherwise denies any chest pain, palpitations or presyncope. His family were at bedside. 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 Per cardiology patient is having episodes of atrial fibrillation with RVR. Patient's Coreg was increased to 18.75 mg p.o. twice daily. Patient started on Eliquis 5 mg p.o. twice daily [employer] was contacted to make adjustments to his pacemaker First troponin is within normal limits I reviewed patient's troponins that were negative x 3 Telemetry Cough Chest x-ray showed no acute process Patient currently has no wheezing on exam Influenza negative, RSV negative, COVID-19 negative I suspect patient may have underlying asthma Continue with albuterol nebulizer treatment standing 4 times a day and see if there is any improvement. Patient will need albuterol HFA on discharge Patient will also need referral to pulmonology for further workup. Ischemic cardiomyopathy Compensated Continue with Entresto 1 tab p.o. twice daily, Coreg, simvastatin 40 mg p.o. at bedtime, Jardiance 10 mg p.o. daily Cardiology increased patient's spironolactone to 25 mg p.o. daily and Lasix to 40 mg p.o. daily Aortic valve replacement Patient states that he has a donor valve Stable Hypertension Blood pressure control Resume home BP meds Hyperlipidemia Continue statin DVT prophylaxis: Subcu Lovenox Objective - Vital Signs Vital signs: Vital Signs Temp 97.7 F 08/13/24 07:50 Pulse 72 08/13/24 09:01 Resp 16 08/13/24 07:50 BP 111/74 08/13/24 07:50 Pulse Ox 97 08/13/24 07:50 FiO2 Intake & Output 08/12/24 08/13/24 08/13/24 18:59 06:59 18:59 Weight 82.1 kg Other: # Voids 2 - Labs CBC & Chem 7: 08/12/24 10:21 08/12/24 10:21 Labs: Abnormal Lab Results - Last 24 Hours (Table) 08/12/24 Range/Units 10:21 Chloride 108 H (98-107) mmol/L BUN 22 H (9-20) mg/dL Magnesium 2.4 H (1.6-2.3) mg/dL
--- NOTE | 2024-08-13 15:24 | P.EPPROC ---
- EP Procedure Note Electrophysiology Procedure Note: Single-chamber ICD was interrogated for ICD therapies This is a VR model #1411 Gupta device R waves 12 mV, pacing threshold 1 V at 0.5 ms and pacing pins 380 ohms High-voltage impedance 40 ohms The device is programmed to a VT zone of 181 beats minute with antitachycardia pacing 10 J cardioversion followed by 20 J and a VF zone at 222 beats a minute with a single ATP during charging followed by the first shock at 30 J and subsequent to 36 J Patient had tachycardia in the VT zone. This was initially recognized appropriately as SVT but later this was reclassified as VT for a slight mismatch since it did not meet the 3 out of 10 morphology criteria at 90% match Antitachycardia pacing followed by cardioversion therapy was delivered My interpretation of the electrograms Supraventricular rhythm consistent with A-fib with RVR Plan Anticoagulate TSH Maximize beta-blockers and heart failure therapies After a minimum of 4 weeks of anticoagulation proceed with A-fib ablation
[2024-08-14 01:52] VITALS: RESP 16
[2024-08-14 06:31] VITALS: BP 122/78; TEMP 97.9
[2024-08-14] MEDS: FUROSEMIDE 40 MG TAB PO SCH (06:32)
[2024-08-14] MEDS: PANTOPRAZOLE 40 MG TABLET PO SCH (06:32)
[2024-08-14] MEDS: SPIRONOLACTONE 25 MG TAB PO SCH (06:32)
[2024-08-14 09:05] VITALS: PULSE 72
--- NOTE | 2024-08-14 11:50 | P.PN ---
Subjective HISTORY OF PRESENT ILLNESS: Patient examined this morning the bedside. Patient currently denies chest pain or pressure. Patient denies shortness of breath. Vital signs are stable. Telemetry reveals atrial fibrillation with controlled ventricular rate. PHYSICAL EXAM: VITAL SIGNS: Reviewed. GENERAL: Well-developed in no acute distress. NECK: Supple. No JVD or thyromegaly LUNGS: Respirations even and unlabored. Lungs essentially clear to auscultation bilaterally. HEART: Regular rate and rhythm. S1 and S2 heard. EXTREMITIES: Normal range of motion. No clubbing or cyanosis. Peripheral pulses intact. No lower extremity edema ASSESSMENT: Inappropriate defibrillator discharge New onset atrial fibrillation with RVR Coronary artery disease with previous CABG Congestive heart failure with reduced EF, currently euvolemic History of aortic valve replacement PLAN: Continue current cardiac medications Continue anticoagulation with Eliquis Continue current dose of carvedilol Patient will require A-fib ablation after minimum of 4 weeks of anticoagulation Patient may be discharged home today from a cardiac standpoint and follow-up in the office with Dr. Mcclellan Nurse practitioner note has been reviewed by physician. Signing provider agrees with the documented findings, assessment, and plan of care documented by GUARD SERGEANT as a scribe. Objective - Vital Signs Vital signs: Vital Signs Temp 97.9 F 08/14/24 06:30 Pulse 72 08/14/24 09:05 Resp 16 08/14/24 06:30 BP 122/78 08/14/24 06:30 Pulse Ox 97 08/14/24 06:30 FiO2 Intake & Output 08/13/24 08/14/24 08/14/24 18:59 06:59 18:59 Other: Voiding Method Toilet # Voids 3 1 - Labs CBC & Chem 7: 08/12/24 10:21 08/12/24 10:21
--- NOTE | 2024-08-14 12:08 | P.DS ---
Providers Date of admission: 08/12/24 12:17 Attending physician: Andrey Hardwick Consults: 08/12/24 12:17 Consult Physician Urgent Consulting Provider: [facility] Consult Reason/Comments: acute defibrillator discharge Do you want consulting provider notified?: Yes Primary care physician: Aakash Dorado [facility] Course: Discharge Diagnosis: Atrial fibrillation with RVR [place] discharge of the ICD Acute cough Ischemic cardiomyopathy, compensated Status post aortic valve replacement Hypertension Hyperlipidemia Hospital Course: 64-year-old male with past medical history of ischemic cardiomyopathy status post defibrillator, quadruple bypass, HTN, HLD, aortic valve replacement who was sent here from his PCP office to be evaluated for defibrillator shock. He had an initial discharge while working and was notified by the device company but not his cardiology office, next call from device company was on 08/11 stating that his heart rate was rapid but there was no defibrillator discharge. In the ED patient's device was interrogated and it was found that patient having atrial fibrillation with RVR confusing the pacemaker and causing it to discharge. Patient did not have any particular symptoms prior to the shock. Patient was seen by cardiology who noted that ICD interpreted patient's rhythm is supraventricular and later along the course reclassified it is VT in view of suboptimal, septal mismatch and hence therapies were delivered inappropriately. Patient was started on Eliquis, his Coreg was increased to 18.75 twice daily, spironolactone increased to 25 p.o. daily and Lasix to 40 p.o. daily. Patient will follow-up with cardiology after discharge as well as his primary care physician. Patient also was complaining about cough, underlying asthma/COPD suspected, patient was recommended to request a referral to pulmonology after discharge, albuterol inhaler prescription sent. Patient seen and examined at bedside. Patient feels well, patient's is at bedside, patient denies chest pain, pressure, palpitations, shortness of breath Vital signs reviewed and stable. General: [nontoxic], [no distress], [appears at stated age] Derm: [warm], [dry] Head: [atraumatic], [normocephalic], [symmetric] Eyes: [EOMI], [no lid lag], [anicteric sclera] Mouth: [no lip lesion], [mucus membranes moist] Cardiovascular: [S1S2 reg], systolic murmur Lungs: [CTA bilateral], [no rhonchi, no rales] , [no accessory muscle use] Abdominal: [soft], [ nontender to palpation], [no guarding], [no appreciable organomegaly] Ext: [no gross muscle atrophy], [no edema], [no contractures] Neuro: [ CN II-XI grossly intact], [no focal neuro deficits] Psych: [Alert], [oriented], [appropriate affect] A total of 40 minutes of time were spent preparing this complex discharge summary. Patient was discharged on 08/14/24 Plan - Discharge Summary Discharge Rx Participant: No New Discharge Prescriptions: New carvediloL [Coreg*] 18.75 mg PO BID@629,1829 60 Days tab Apixaban [Eliquis] 5 mg PO BID 30 Days #60 tab Albuterol Inhaler [Ventolin Hfa Inhaler] 1 puff INHALATION QID 30 Days #8 gm Continue Simvastatin 40 mg PO HS@1829 Sacubitril/Valsartan [Entresto 49 mg-51 mg Tablet] 1 tab PO BID@629,1829 tadalafiL [Cialis] 5 mg PO DAILY@629 Empagliflozin [Jardiance] 10 mg PO DAILY@30 Omeprazole Magnesium [PriLOSEC OTC] 20 mg PO Q2D@30 Changed Aspirin 81 mg PO DAILY@0630 #60 tab Furosemide [Lasix] 40 mg PO DAILY@0630 #60 tab Spironolactone [Aldactone] 25 mg PO DAILY@0630 #60 tab Discontinued carvediloL [Coreg] 12.5 mg PO BID@629,1829 Discharge Medication List Simvastatin 40 mg PO HS@1830 01/01/16 [History] Empagliflozin [Jardiance] 10 mg PO DAILY@30 08/12/24 [History] Omeprazole Magnesium [PriLOSEC OTC] 20 mg PO Q2D@62908/12/24 [History] Sacubitril/Valsartan [Entresto 49 mg-51 mg Tablet] 1 tab PO BID@0630,18308/12/24 [History] tadalafiL [Cialis] 5 mg PO DAILY@0630 08/12/24 [History] Albuterol Inhaler [Ventolin Hfa Inhaler] 1 puff INHALATION QID 30 Days #8 gm 08/14/24 [Rx] Apixaban [Eliquis] 5 mg PO BID 30 Days #60 tab 08/14/24 [Rx] Aspirin 81 mg PO DAILY@0630 #60 tab 08/14/24 [Rx] Furosemide [Lasix] 40 mg PO DAILY@0630 #60 tab 08/14/24 [Rx] Spironolactone [Aldactone] 25 mg PO DAILY@0630 #60 tab 08/14/24 [Rx] carvediloL [Coreg*] 18.75 mg PO BID@0630,1830 60 Days tab 08/14/24 [Rx] Follow up Appointment(s)/Referral(s): Owen Mcclellan DO [STAFF PHYSICIAN] - 1 Week (office to call after speaking with karyn.) Aakash Dorado MD [Primary Care Provider] - 1-2 days Patient Instructions/Handouts: Apixaban (By mouth), Implantable Cardioverter Defibrillator (DC) Activity/Diet/Wound Care/Special Instructions: Please, request pulmonology referral from you primary care provider.Please, follow up with your photographers' model as scheduled. Please, make sure you take all medications as prescribed without skipping doses. Monitor your blood pressure daily and keep the log of the readings to discuss with your primary care provider Discharge Disposition: HOME SELF-CARE
== END 2024-08-14 12:12 | disposition home or self-care (01) ==
LOC: EC 09:41 → 6NMEDSUR 12:17
PROVIDERS: ADMIT Student in an Organized Health Care Education/Training Program; ATTEND Student in an Organized Health Care Education/Training Program
DX: I48.20 Chronic atrial fibrillation, unspecified (principal); I25.10 Atherosclerotic heart disease of native coronary artery without angina pectoris; T82.897A Other specified complication of cardiac prosthetic devices, implants and grafts, initial encounter; I11.0 Hypertensive heart disease with heart failure; I50.20 Unspecified systolic (congestive) heart failure; I25.5 Ischemic cardiomyopathy; E78.5 Hyperlipidemia, unspecified; Z79.82 Long term (current) use of aspirin; Z79.84 Long term (current) use of oral hypoglycemic drugs; Z79.899 Other long term (current) drug therapy; Z95.810 Presence of automatic (implantable) cardiac defibrillator; Z95.2 Presence of prosthetic heart valve; Z95.1 Presence of aortocoronary bypass graft; Z11.52 Encounter for screening for COVID-19
CPT/HCPCS: 93292; 93799; 99285; 36415; 94640 ×4; 93005; 83880; 80053; 84443; 83735; 84484; 85025; 85610; 85730; 87636; 71046; G0378 ×3

== ENCOUNTER → 2024-10-24 | Outpatient (CLI) | payer BC ==
[2024-10-25 02:50] LABS: Basophils # (A) 0.05 X 10*3/uL (0.00-0.10); Basophils % (A) 0.7 %; Eosinophils # (A) 0.11 X 10*3/uL (0.04-0.35); Eosinophils % (A) 1.6 %; HCT 45.3 % (39.6-50.0); HGB 15.5 g/dL (13.0-17.0); Lymphocytes # (A) 1.86 X 10*3/uL (0.90-5.00); Lymphocytes % (A) 27.4 %; MCH 29.3 pg (27.0-32.0); MCHC 34.2 g/dL (32.0-37.0); MCV 85.6 FL (80.0-97.0); Mean Platelet Volume 10.4 FL (9.5-12.2); Monocytes # (A) 0.57 X 10*3/uL (0.20-1.00); Monocytes % (A) 8.4 %; NRBC Per 100 WBC 0 X 10*3/uL (0.00-0.01); Neutrophils % (A) 61.8 %; Platelet Count 225 X 10*3/uL (140-440); RBC 5.29 X 10*6/uL (4.40-5.60); RDW 12.7 % (11.5-14.5)
[2024-10-25 03:14] LABS: Blood Urea Nitrogen 20.3 mg/dL (9.0-27.0); Chloride 101 mmol/L (96-109); Potassium 4.2 mmol/L (3.5-5.5); Sodium 138 mmol/L (135-145)
== END | disposition home or self-care (01) ==
LOC: LABPAT 15:55
PROVIDERS: ATTEND Internal Medicine Clinical Cardiac Electrophysiology
DX: Z01.812 Encounter for preprocedural laboratory examination (principal); I48.0 Paroxysmal atrial fibrillation
CPT/HCPCS: 80051; 82565; 84520; 85025

== ENCOUNTER 2024-11-07 06:31 | Day surgery (SDC) | payer BC ==
[2024-11-03 10:11] VITALS: BMI 29.9
[2024-11-07] MEDS: SODIUM CHLORIDE 0.9% 1,000 ML IV SCH (07:10)
[2024-11-07] MEDS: IV FLUID CONTINUATION 1,000 ML IV ONE (07:26)
[2024-11-07 07:27] LABS: ALT 18 U/L (4-49); AST 22 U/L (17-59); African American GFR (CKD) 73 (>60 ml/min/1.73 sqM); Albumin 4.4 g/dL (3.5-5.0); Alkaline Phosphatase 52 U/L (38-126); Anion Gap 7 mmol/L; Blood Urea Nitrogen 16 mg/dL (9-20); Calcium 9.1 mg/dL (8.4-10.2); Carbon Dioxide 28 mmol/L (22-30); Chloride 103 mmol/L (98-107); Glucose 102 mg/dL (74-99); Non-African American GFR(CKD) 63 (>60 ml/min/1.73 sqM); Sodium 138 mmol/L (137-145); Total Bilirubin 0.9 mg/dL (0.2-1.3); Total Protein 6.9 g/dL (6.3-8.2)
[2024-11-07] MEDS ORDERED: ISOPROTERENOL 250 MCG/1.25 ML SYR IV ONE (08:08)
[2024-11-07] MEDS ORDERED: PROPOFOL 10 MG/ML 20 ML VIAL IV ONE (08:08)
[2024-11-07] MEDS ORDERED: HEPARIN SODIUM,PORCINE 10,000 UNIT/ML 1 ML VIAL ONE (08:08)
[2024-11-07] MEDS ORDERED: PHENYLEPHRINE-0.9% NACL SYG 1,000 MCG/10 ML SYRINGE ONE (08:08)
[2024-11-07] MEDS ORDERED: SUCCINYLCHOLINE CHLORIDE 200 MG/10 ML VIAL IV ONE (08:08)
[2024-11-07] MEDS ORDERED: PHENYLEPHRINE 10 MG/ML VIAL ONE (08:08)
[2024-11-07] MEDS ORDERED: fentaNYL (PF) 50 MCG/ML 2 ML AMP ONE (08:08)
--- NOTE | 2024-11-07 08:43 | P.HPCAR ---
History of Present Illness This is Dr. Newton dictating an H/P on this patient The patient was interviewed and examined IMPRESSION / ASSESSMENT: Successful atrial fibrillation Inappropriate ICD shocks Single-chamber ICD in situ for cardiomyopathy, Gupta On guideline directed medical treatment PLAN: Diagnose EP study and A-fib ablation Heparin dose calculated Eliquis was taken this morning labs are normal Patient has no symptoms or chest pain or any cardiac symptoms the last 1 week. Stable to proceed with procedure under general anesthesia Continue Eliquis uninterrupted for the next 2 months postprocedure HPI Patient has a history of atrial fibrillation with RVR with inappropriate ICD shocks In the last 1 week he has not had any ICD shocks or syncope or chest pain Denies any fever chills cough ROS: No fever chills or rigors, no cough, phlegm or expectoration, no nausea, vomiting or diarrhea, no hematuria, dysuria, no musculoskeletal complaints, no strokes or seizures, no skin lesions. EXAMINATION: Blood pressure 115/82 mmHg pulse rate in the 60s afebrile No JVD No lower extremity edema Heart sounds normal no murmur no gallop or rub Breath sounds are clear REVIEW OF LABS, ECG & MEDICAL DATA Sodium 138 potassium 4.0 BUN 16 creatinine 1.2 TSH normal at 2.3 Physical Exam Vitals: Vital Signs Temp Pulse Resp BP Pulse Ox 11/07/24 07:10 97.7 F 63 16 115/82 16 L Intake and Output 11/06/24 11/07/24 11/07/24 22:59 06:59 14:59 Intake Total 0 Balance 0 Intake: IV 0 Other: Weight 78.6 kg Past Medical History Past Medical History: Atrial Fibrillation, Heart Failure, Hyperlipidemia, Hypertension History of Any Multi-Drug Resistant Organisms: None Reported Past Surgical History: AICD, Cardiac Valve Replacement, Coronary Bypass/CABG Additional Past Surgical History / Comment(s): aortic valve replacement. defibrillator. quad bypass Past Anesthesia/Blood Transfusion Reactions: No Reported Reaction Type of Cardiac Device: AICD Device Placement Date:: 2016 Smoking Status: Never smoker - Past Family History Mother Family Medical History: No Reported History Physical Examination Vital Signs Temp Pulse Resp BP Pulse Ox 11/07/24 07:10 97.7 F 63 16 115/82 16 L Intake and Output 11/06/24 11/07/24 11/07/24 22:59 06:59 14:59 Intake Total 0 Balance 0 Intake: IV 0 Other: Weight 78.6 kg Results 11/07/24 06:53 Cardiac Enzymes 11/07/24 Range/Units 06:53 AST 22 (17-59) U/L Comprehensive Metabolic Panel 11/07/24 Range/Units 06:53 Sodium 138 (137-145) mmol/L Potassium 4.0 (3.5-5.1) mmol/L Chloride 103 (98-107) mmol/L Carbon Dioxide 28 (22-30) mmol/L BUN 16 (9-20) mg/dL Creatinine 1.22 (0.66-1.25) mg/dL Glucose 102 H (74-99) mg/dL Calcium 9.1 (8.4-10.2) mg/dL AST 22 (17-59) U/L ALT 18 (4-49) U/L Alkaline Phosphatase 52 (38-126) U/L Total Protein 6.9 (6.3-8.2) g/dL Albumin 4.4 (3.5-5.0) g/dL Current Medications Generic Name Dose Route Start Last Admin Trade Name Freq PRN Reason Stop Dose Admin Sodium Chloride 1,000 mls @ 20 mls/hr 11/07/24 06:01 11/07/24 07:10 Saline 0.9% IV 12/07/24 06:00 20 mls/hr .Q24H NOHEMY Administration Intake and Output 11/06/24 11/07/24 11/07/24 22:59 06:59 14:59 Intake Total 0 Balance 0 Intake: IV 0 Other: Weight 78.6 kg Patient Weight 11/08/24 06:59 Weight 78.6 kg 11/07/24 06:53
[2024-11-07] MEDS: HEPARIN SODIUM,PORCINE 10,000 UNIT in SODIUM CHLORIDE 0.9% 1,000 ML IRRIGATION ONE (09:01)
[2024-11-07] MEDS: HEPARIN SOD,PORK IN 0.45% NACL 25,000 UNIT in 0.45% NACL 1 250ML.BAG IV ONE (09:01)
[2024-11-07] MEDS: HEPARIN SODIUM,PORCINE (1 ML) 2,500 UNIT in SODIUM CHLORIDE 0.9% 250 ML IRRIGATION ONE (09:01)
[2024-11-07] MEDS: ROPIVACAINE 5 MG/ML 30 ML VIAL MISCELLANE ONE (09:10)
[2024-11-07] MEDS: LIDOCAINE 1% INJ 10MG/ML (20 ML MDV) SQ ONE (09:10)
[2024-11-07] MEDS: IOPAMIDOL-370 100ML BTL INJ ONE (10:55)
[2024-11-07] MEDS ORDERED: ACETAMINOPHEN TAB 325 MG TAB PO PRN (11:34)
--- NOTE | 2024-11-07 11:41 | P.PRLE ---
RE: Myron Gonzalez Dear Aakash Sanches Carlos underwent an A-fib ablation for paroxysmal A-fib with RVR that resulted in inappropriate ICD shocks He tolerated the procedure well without any acute complications I would continue anticoagulation with Eliquis uninterrupted for the next 2 months to avoid risk of CVA/TIA. For the next 2 months, he should not undergo any procedures that require temporary discontinuation of Eliquis for 2 days Thank you for entrusting me with the care of the patient Warm regards Sincerely Juan Newton
--- NOTE | 2024-11-07 12:08 | P.EPPROC ---
- EP Procedure Note Electrophysiology Procedure Note: PROCEDURE A. fib ablation DIAGNOSIS Paroxysmal atrial fibrillation, symptomatic, patient received inappropriate ICD shocks, refractory to therapy RESULT No left atrial appendage mass seen on intracardiac echo Successful A. fib ablation/pulmonary vein isolation of all veins using cryo-ablation Complete entrance block in all 4 veins confirmed Left atrial septal ablation No evidence for phrenic nerve injury Esophageal deflection YES PROCEDURE DETAILS Written informed consent prior to procedure. Patient brought to the EP lab. General anesthesia given. Heparin administered. A city maintained above 300 seconds Both groins prepped and draped per protocol and venous sheaths placed. Esophagus intubated, circa catheter for temperature monitoring an endoscope for possible esophageal deflection. Phrenic nerve monitoring performed. Esophageal temperature monitoring performed. Esophageal deflection performed if circa catheter overlapping with the balloon or circa temperature less than 27.5C Intracardiac echocardiography performed. Pericardium evaluated. Left atrial appendage evaluated. Left atrium evaluated along with pulmonary veins Transseptal catheterization performed under fluoroscopic guidance and intracardiac echo guidance Cryoablation sheath exchanged, balloon catheter along with achieve catheter placed in the left atrium. Pulmonary veins isolated in the following sequence: Left superior pulmonary vein followed by left inferior pulmonary vein, followed by right inferior pulmonary vein and lastly right superior pulmonary vein. Phrenic nerve stimulation along with capture thresholds within the SVC and right superior pulmonary vein to identify the phrenic nerve proximity to the cryo- balloon. Pulmonary veins isolated and confirmed with entrance and exit block. Phrenic nerve integrity confirmed at the end of the procedure Ablation of the left atrial septum performed with cannulation of the superior branch of the right inferior or the inferior branch of the right superior vein to achieve ablation of the posterior septum of the left atrium. Ablation of electrograms confirmed Diagnostic catheters for the high right atrium, His bundle, coronary sinus placed. LA and RA pressures recorded LA pressure: 10/0/3 Diagnostic EP study with coronary sinus pacing and recording Baseline measurements: Sinus cycle length 1035, TX interval 191, QT 393 and QRS 103 ms AH 97 and HV 54 ms Sinus node recovery time to 1350, 1087 and 1413 AV node Wenckebach block 510 ms Burst stimulation from the high right atrium on high-dose Isopril performed No inducible atrial fibrillation Venous sheaths were removed and hemostasis assured with a closure device. Patie nt extubated and transferred to recovery PROCEDURES PERFORMED Diagnostic EP study CS pacing and recording Left and right transseptal catheterization Catheter the mapping of the tachycardia Intracardiac echocardiography Pulmonary vein isolation with transseptal and comprehensive EPS, 30413 Drug infusion, +[id number] Linear ablation, left atrium, +[id number]
[2024-11-07 16:08] LABS: Basophils % (A) 0 %; Eosinophils % (A) 0 %; HCT 50.7 % (39.0-53.0); HGB 16.4 gm/dL (13.0-17.5); Lymphocytes # (A) 1.1 k/uL (1.0-4.8); Lymphocytes % (A) 10 %; MCH 28.5 pg (25.0-35.0); MCHC 32.3 g/dL (31.0-37.0); MCV 88.3 fL (80.0-100.0); Mean Platelet Volume 7.2; Monocytes # (A) 0.6 k/uL (0-1.0); Monocytes % (A) 5 %; Neutrophils # (A) 9.5 k/uL (1.3-7.7); Neutrophils % (A) 84 %; Platelet Count 218 k/uL (150-450); RBC 5.74 m/uL (4.30-5.90); RDW 12.7 % (11.5-15.5); WBC 11.3 k/uL (3.8-10.6)
[2024-11-07] MEDS: carvediloL 12.5 MG TAB PO SCH (17:50)
[2024-11-07] MEDS: ATORVASTATIN 20 MG TAB PO SCH (17:50)
[2024-11-07] MEDS: SACUBITRIL/VALSARTAN 49 MG-51 MG TABLET PO SCH (17:50)
[2024-11-07] MEDS: APIXABAN 5 MG TAB PO SCH (20:18)
[2024-11-08] MEDS: FUROSEMIDE 40 MG TAB PO SCH (05:47)
[2024-11-08] MEDS: SPIRONOLACTONE 25 MG TAB PO SCH (05:47)
[2024-11-08] MEDS: DAPAGLIFLOZIN PROPANEDIOL 5 MG TABLET PO SCH (05:47)
[2024-11-08] MEDS: ASPIRIN 81 MG PO SCH (05:47)
[2024-11-08 07:56] VITALS: BP 96/64; PULSE 71; RESP 16; TEMP 98.2
[2024-11-09] MEDS ORDERED: PANTOPRAZOLE 40 MG TABLET PO SCH (06:30)
--- NOTE | 2024-11-09 15:04 | P.DS ---
Providers Attending physician: Juan Newton Primary care physician: [facility] Course: Patient is doing well. No chest discomfort dizziness lightheadedness or palpitations Mild soreness in the throat No pleuritic chest pain Examination reveals a blood pressure 106/68 mmHg pulse rate in the 70s afebrile Heart sounds S1-S2 normal no murmurs or gallop no rub Breath sounds are clear Groins have healed well Impression Paroxysmal atrial fibrillation with associated inappropriate ICD shocks Successful PVI at the antral level and left atrial septal ablation ICD was interrogated and reprogrammed to minimize ICD shocks with lengthening the detections changing the tacky parameters Plan Uninterrupted anticoagulation over the next 2 months. Discussed with patient discussed stroke risk Continue all other medications as before Follow-up with primary final cigar and box examiner in a week Plan - Discharge Summary Discharge Rx Participant: No New Discharge Prescriptions: Continue RX: Simvastatin 40 mg PO HS@1830 RX: Sacubitril/Valsartan [Entresto 49 mg-51 mg Tablet] 1 tab PO BID@629,1829 RX: carvediloL [Coreg*] 18.75 mg PO BID@629,1830 60 Days tab RX: Aspirin 81 mg PO DAILY@0630 #60 tab RX: Furosemide [Lasix] 40 mg PO DAILY@0630 #60 tab RX: Apixaban [Eliquis] 5 mg PO BID 30 Days #60 tab RX: tadalafiL [Cialis] 5 mg PO DAILY@0630 RX: Empagliflozin [Jardiance] 10 mg PO DAILY@0630 RX: Omeprazole Magnesium [PriLOSEC OTC] 20 mg PO Q2D@0630 RX: Spironolactone [Aldactone] 25 mg PO DAILY@0630 #60 tab Discharge Medication List RX: Simvastatin 40 mg PO HS@1830 01/01/16 [History] RX: Empagliflozin [Jardiance] 10 mg PO DAILY@30 08/12/24 [History] RX: Omeprazole Magnesium [PriLOSEC OTC] 20 mg PO Q2D@30 08/12/24 [History] RX: Sacubitril/Valsartan [Entresto 49 mg-51 mg Tablet] 1 tab PO BID@629,182908/12/24 [History] RX: tadalafiL [Cialis] 5 mg PO DAILY@30 08/12/24 [History] RX: Apixaban [Eliquis] 5 mg PO BID 30 Days #60 tab 08/14/24 [Rx] RX: Aspirin 81 mg PO DAILY@0630 #60 tab 08/14/24 [Rx] RX: Furosemide [Lasix] 40 mg PO DAILY@0630 #60 tab 08/14/24 [Rx] RX: Spironolactone [Aldactone] 25 mg PO DAILY@0630 #60 tab 08/14/24 [Rx] RX: carvediloL [Coreg*] 18.75 mg PO BID@0630,1830 60 Days tab 08/14/24 [Rx] Follow up Appointment(s)/Referral(s): Owen Mcclellan DO [STAFF PHYSICIAN] - 11/14/24 9:00 am () Activity/Diet/Wound Care/Special Instructions: Post EP study - Ablation instructions 1. Keep access sites dry for 2 days. 2. No heavy lifting or straining for 2 days. 3. Avoid bending the hips repeatedly for 2 days. 4. You may go up and down stairs slowly 5. If you have had an ablation for atrial fibrillation or atrial flutter and are on a blood thinner, do not stop the blood thinner even temporarily for 3 months post ablation Call if the following is noted 1. Bleeding, increasing swelling or pain at the access sites. 2. Increasing chest discomfort, especially upon taking a deep breath. 3. Increasing shortness of breath, at rest or with exertion. 4. Undue cough / phlegm 5. Difficulty or pain while swallowing. 6. Pain or change in color in the extremities. 7. Fever, chills, rigors. 8. Increasing headache or neurologic symptoms. 9. Dizziness, fainting, palpitations For patients who have undergone an A-fib ablation /atrial flutter ablation Strict instruction; do NOT stop anticoagulation (Eliquis/Xarelto/Pradaxa) for the next 2 months temporarily, for any elective, nonurgent surgery. This increases the risk of stroke, post A-fib ablation Discharge Disposition: HOME SELF-CARE
== END 2024-11-08 10:56 | disposition home or self-care (01) ==
LOC: CATHEP 06:31 → 6NMEDSUR 10:40 → CATHEP 11-08 10:56
PROVIDERS: ATTEND Internal Medicine Clinical Cardiac Electrophysiology
DX: I48.0 Paroxysmal atrial fibrillation (principal); I42.9 Cardiomyopathy, unspecified; I11.0 Hypertensive heart disease with heart failure; I50.9 Heart failure, unspecified; K21.9 Gastro-esophageal reflux disease without esophagitis; E78.5 Hyperlipidemia, unspecified; Z95.2 Presence of prosthetic heart valve; Z95.810 Presence of automatic (implantable) cardiac defibrillator; Z95.1 Presence of aortocoronary bypass graft; Z79.82 Long term (current) use of aspirin; Z79.01 Long term (current) use of anticoagulants; Z79.84 Long term (current) use of oral hypoglycemic drugs; Z79.899 Other long term (current) drug therapy
CPT/HCPCS: 93005; 93656; 93623; 93657; 86900; 86901; 80053; 84443; 85025; 86850; J0330; J1644 ×3; J2003; J3010; J2795; J2704; Q9967; J2371 ×2